=== PATIENT | female | born 1955 | race African-American/Black ===

== ENCOUNTER 2017-12-23 12:45 | Inpatient (IN) | payer OTHER ==
[2017-12-23 15:03] VITALS: BMI 28.6
--- NOTE | 2017-12-23 16:52 | HP ---
COWS - Scale Resting Pulse: 0= CT 80 or Below Sweatin=Flushed/Facial Moisture Restless Observation: 3= Extraneous Movement Pupil Size: 2= Moderately Dilated Bone or Joint Aches: 2= Severe Diffuse Aches Runny Nose/ Eye Tearin= Runny Nose/Eyes GI Upset > 30mins: 3= Vomiting/Diarrhea Tremor Observation: 2= Slight Tremor Visible Yawning Observation: 2= >3x During Session Anxiety or Irritability: 2=Irritable/Anxious Goose Flesh Skin: 0=Smooth Skin COWS Score: 20 Admission ROS S - HPI Chief Complaint: i need help to stop using heroin,xanax Allergies/Adverse Reactions: Allergies Allergy/AdvReac Type Severity Reaction Status Date / Time No Known Allergies Allergy Verified 12/23/17 16:06 History of Present Illness: this 62 years old female with heroin and xanax dependence,seeking detox, withdrawal symptom,last detox [facility] 05/23/16 to 05/26/16 not completed htn on medication insomnia,anxiety,depression longest time of sobriety for 2 years weight loss - Ebola screening Have you traveled outside of the country in the last 21 days: No (N) Have you had contact with anyone from an Ebola affected area: No Have you been sick,other than usual withdrawal symptoms: No Do you have a fever: No - Review of Systems Constitutional: Chills, Diaphoresis, Loss of Appetite, Night Sweats, Changes in sleep, Weakness, Unintentional Wgt. Loss EENT: reports: Tearing, Nose Congestion Respiratory: reports: No Symptoms reported Cardiac: reports: No Symptoms Reported GI: reports: Diarrhea, Nausea, Vomiting, Abdominal cramping : reports: No Symptoms Reported Musculoskeletal: reports: Back Pain, Joint Pain, Muscle Pain, Joint Stiffness Integumentary: reports: Dryness Neuro: reports: Headache, Tremors Endocrine: reports: No Symptoms Reported Hematology: reports: No Symptoms Reported Psychiatric: reports: Judgement Intact, Mood/Affect Appropiate, Orientated x3 ( insomnia), Anxious, Depressed Patient History - Patient Medical History Hx Anemia: No Hx Asthma: No Hx Chronic Obstructive Pulmonary Disease (COPD): No Hx Cancer: Yes (ANUS 2001 RADIATION and chemotherapy) Hx Cardiac Disorders: No Hx Congestive Heart Failure: No Hx Hypertension: Yes (on medication) Hx Hypercholesterolemia: No Hx Pacemaker: No HX Cerebrovascular Accident: No Hx Seizures: No Hx Dementia: No Hx Diabetes: No Hx Gastrointestinal Disorders: No Hx Liver Disease: No Hx Genitourinary Disorders: No Hx Sexually Transmitted Disorders: No Hx Renal Disease (ESRD): No Hx Thyroid Disease: No Hx Human Immunodeficiency Virus (HIV): No Hx Hepatitis C: No Hx Depression: Yes (anxiety,insomnia) Hx Suicide Attempt: No Hx Bipolar Disorder: No Hx Schizophrenia: No Other Medical History: no suicidal,no homicidal, - Patient Surgical History Past Surgical History: No Hx Neurologic Surgery: No Hx Cataract Extraction: No Hx Cardiac Surgery: No Hx Lung Surgery: No Hx Breast Surgery: No Hx Breast Biopsy: No Hx Abdominal Surgery: No Hx Appendectomy: No Hx Cholecystectomy: No Hx Genitourinary Surgery: Yes (partial hysterectomy for fibroid ) Hx Section: No Hx Orthopedic Surgery: No Hx Hysterectomy: No Anesthesia Reaction: No - PPD History Previous Implant?: Yes Documented Results: Negative w/o proof Date: 05/25/16 Results: 0mm PPD to be Administered?: Yes - Reproductive History Patient is a Female of Child Bearing Age (11 -55 yrs old): No Patient : No - Smoking Cessation Smoking history: Current every day smoker Have you smoked in the past 12 months: Yes Aproximately how many cigarettes per day: 10 Hx Chewing Tobacco Use: No Initiated information on smoking cessation: Yes 'Breaking Loose' booklet given: 12/23/17 - Substance & Tx. History Hx Alcohol Use: No Hx Substance Use: Yes Substance Use Type: Heroin, Tranquilizers Hx Substance Use Treatment: Yes ([facility] 05/23/16 to 05/26/16 not completed) - Substances Abused Heroin Route: Inhalation Frequency: Daily Amount used: 5-8 bags Age of first use: 57 Date of Last Use: 12/22/17 Alprazolam (Xanax) Route: Oral Frequency: Daily Amount used: 4 mgs Age of first use: 51 Date of Last Use: 12/23/17 Family Disease History - Family Disease History Family Disease History: Other: Father (DO NOT KNOW HIM), Mother (CHEMICAL INBALANCE) Admission Physical Exam BHS - Vital Signs Vital Signs: Vital Signs - 24 hr 12/23/17 15:01 Temperature 98.2 F Pulse Rate 59 L Respiratory 18 Rate Blood Pressure 149/93 - Physical General Appearance: Yes: Moderate Distress, Tremorous, Irritable, Sweating HEENTM: Yes: Normal ENT Inspection, CASSIE, Pharynx Normal Respiratory: Yes: Within Normal Limits, Lungs Clear, Normal Breath Sounds Neck: Yes: Within Normal Limits, Supple, Trachea in good position Breast: Yes: Breast Exam Deferred Cardiology: Yes: Within Normal Limits, Regular Rhythm, Regular Rate, S1, S2 Abdominal: Yes: Within Normal Limits, Normal Bowel Sounds, Non Tender, Soft, Decreased BS Genitourinary: Yes: Within Normal Limits Back: Yes: Muscle Spasm Musculoskeletal: Yes: Back pain, Muscle Pain Extremities: Yes: Within Normal Limits, Normal Range of Motion, Tremors Neurological: Yes: senior graphic designer II-XII NML intact, Fully Oriented, Alert, Motor Strength 5/5 Integumentary: Yes: Dry Lymphatic: Yes: Within Normal Limits - Diagnostic (1) Opioid dependence with withdrawal Current Visit: Yes Status: Acute (2) Uncomplicated sedative, hypnotic or anxiolytic withdrawal Current Visit: Yes Status: Acute (3) Hypertension Current Visit: No Status: Chronic Qualifiers: Hypertension type: essential hypertension Qualified Code(s): I10 - Essential (primary) hypertension (4) Nicotine dependence Current Visit: No Status: Chronic Qualifiers: Nicotine product type: cigarettes Substance use status: uncomplicated Qualified Code(s): F17.210 - Nicotine dependence, cigarettes, uncomplicated (5) Anxiety and depression Current Visit: No Status: Suspected (6) Insomnia Current Visit: Yes Status: Acute Cleared for Admission [facility] - Detox or Rehab [facility] Level of Care: Medically Managed Detox Regimen/Protocol: Methadone/Valium [facility] Breath Alcohol Content Breath Alcohol Content: 0 Urine Pregancy Test - Result Urine Test Results: Negative- NO Line Present Urine Drug Screen - Results Drug Screen Negative: No Urine Drug Screen Results: OPI-Opiates, BZO-Benzodiazepines, OXY-Oxycodone
[2017-12-23] MEDS ORDERED: MAG HYDROX/AL HYDROX/SIMETH 30 ML UNIT-DOSE CUP PO PRN (17:52)
[2017-12-23] MEDS ORDERED: diazePAM 5 MG TABLET PO ONE (17:52)
[2017-12-23] MEDS ORDERED: guaiFENesin/D-METHORPHAN HB 10 ML UNIT-DOSE CUPS PO PRN (17:52)
[2017-12-23] MEDS ORDERED: METHADONE HCL 10 MG TABLET (FOR DETOX USE ONLY) PO ONE ×2 (17:52→23:00)
[2017-12-23] MEDS ORDERED: LOPERAMIDE HCL 2 MG CAPSULE PO PRN (17:52)
[2017-12-23] MEDS ORDERED: hydrOXYzine PAMOATE 25 MG CAPSULE (FP) PO PRN (17:52)
[2017-12-23] MEDS ORDERED: P-EPHED 60MG/TRIPROLIDI 2.5MG TABLET PO PRN (17:52)
[2017-12-23] MEDS ORDERED: IBUPROFEN 400 MG TABLET (FP) PO PRN (17:52)
[2017-12-23] MEDS ORDERED: ACETAMINOPHEN 325 MG TABLET (FP) PO PRN (17:52)
[2017-12-23] MEDS ORDERED: MAGNESIUM CITRATE 300 ML BOTTLE PO PRN (17:52)
[2017-12-23] MEDS ORDERED: MENTHOL/PHENOL 1 EACH UD MM PRN (17:52)
[2017-12-23] MEDS ORDERED: MAGNESIUM HYDROX 2400MG/30ML ORAL SUSPENSION 30 ML CUP PO PRN (17:52)
[2017-12-23] MEDS: NICOTINE 21 MG/24 HOURS TOPICAL PATCH TD SCH (18:51)
[2017-12-23] MEDS ORDERED: COLLOIDAL OATMEAL 1 BAR EACH TP PRN (19:11)
[2017-12-23] MEDS: THIAMINE HCL 100 MG TABLET (FP) PO SCH (22:18)
[2017-12-23] MEDS: diazePAM 5 MG TABLET PO SCH (22:18)
[2017-12-23] MEDS: ENALAPRIL MALEATE 10 MG TABLET (FP) PO SCH (22:18)
[2017-12-24] MEDS: diazePAM 5 MG TABLET PO SCH ×3 (05:24→22:16)
[2017-12-24] MEDS ORDERED: METHADONE HCL 10 MG TABLET (FOR DETOX USE ONLY) PO SCH (10:00)
[2017-12-24] MEDS: PRENATAL VITAMINS W/ FOLIC ACID TABLET (FP) PO SCH (10:12)
[2017-12-24] MEDS: ENALAPRIL MALEATE 10 MG TABLET (FP) PO SCH ×2 (10:12→22:16)
[2017-12-24] MEDS: NICOTINE 21 MG/24 HOURS TOPICAL PATCH TD SCH (10:13)
[2017-12-24] MEDS: diazePAM 5 MG TABLET PO PRN (10:16)
[2017-12-24 10:29] LABS: HEMATOCRIT 43.2 % (32.4-45.2); MCH 28.4 pg (25.7-33.7); MCHC 32.3 g/dl (32.0-36.0); MEAN CELL VOLUME 87.8 fl (80-96); MEAN PLT VOLUME 8.8 fl (7.5-11.1); PLATELET COUNT 207 K/MM3 (134-434); RBC 4.91 M/mm3 (3.60-5.2); RDW 15.5 % (11.6-15.6)
[2017-12-24 10:31] LABS: URINE APPEARANCE CLEAR; URINE BILIRUBIN NEGATIVE (NEGATIVE); URINE BLOOD NEGATIVE (NEGATIVE); URINE COLOR AMBER; URINE GLUCOSE (UA) NEGATIVE (NEGATIVE); URINE KETONE TRACE (NEGATIVE); URINE LEUK ESTERASE NEGATIVE (NEGATIVE); URINE NITRITE NEGATIVE (NEGATIVE); URINE PROTEIN NEGATIVE (NEGATIVE)
[2017-12-24 10:40] LABS: ALBUMIN 3.5 g/dl (3.4-5.0); ANION GAP 9 (8-16); BLOOD UREA NITROGEN 6 mg/dL (7-18); CALCIUM 9.6 mg/dL (8.5-10.1); CHLORIDE 102 mmol/L (98-107); CO2 30 mmol/L (21-32); POTASSIUM 3.9 mmol/L (3.5-5.1); SODIUM 141 mmol/L (136-145)
[2017-12-24 10:45] LABS: ALK PHOS 63 U/L (45-117); BILIRUBIN,TOTAL 0.5 mg/dL (0.2-1.0); CREATININE 0.8 mg/dL (0.55-1.02); GLUCOSE,RANDOM 85 mg/dL (74-106); SGOT/AST 16 U/L (15-37); SGPT/ALT 14 U/L (12-78); TOT PROT 7.1 g/dl (6.4-8.2)
--- NOTE | 2017-12-24 11:25 | CONSULT ---
[facility] Psychiatric Consult - Data Date of interview: 12/24/17 Admission source: Self-referred Identifying data: Ms Jimenez is a 62 years old Black female, mother of a 41 years old son, unemployed on SSI, domiciled seeking detox treatment for heroin and xanax Substance Abuse History: Reports history of heroin and xanax use. Refer to addiction counselor's note for further information. Medical History: Significant for hypertension and history of treatment for anal cancer (radiation &chemo treatment in 2002) and surgery for partial hysterectomy for fibroid. Smokes 10 cigarettes daily Psychiatric History: Reports being diagnosed with depression/anxiety in the past. Claims she saw a lot of psychiatrists in the past and one of them mentioned that she may have Bipolar Disorder s well. Reports taking Abilify in the past and still taking Xanax. Reports not currently receiving psychiatric oupatient treatment. Denies history of psychiatic hospitalization or suicidal attempt. Reports she attended [facility] in [place] in the past. At present, reports feeling anxious and sleeping poorly Physical/Sexual Abuse/Trauma History: Denies history of emotional, physical or sexual abuse as well as DV relationship Additional Comment: No criminal history Mental Status Exam - Mental Status Exam Alert and Oriented to: Time, Place, Person Cognitive Function: Fair Patient Appearance: Well Groomed Mood: Anxious Affect: Appropriate Patient Behavior: Cooperative Speech Pattern: Clear Voice Loudness: Normal Thought Process: Intact, Goal Oriented Hallucinations: Denies Suicidal Ideation: Denies Homicidal Ideation: Denies Insight/Judgement: Poor Sleep: Poorly Appetite: Fair Muscle strength/Tone: Normal Gait/Station: Normal Psychiatric Findings - Problem List ([place] 1, 2,3) (1) Substance-induced anxiety disorder Current Visit: Yes Status: Acute (2) Substance-induced sleep disorder Current Visit: Yes Status: Acute (3) Opioid dependence with withdrawal Current Visit: Yes Status: Acute (4) Uncomplicated sedative, hypnotic or anxiolytic withdrawal Current Visit: Yes Status: Acute (5) Nicotine dependence Current Visit: No Status: Chronic Qualifiers: Nicotine product type: cigarettes Substance use status: uncomplicated Qualified Code(s): F17.210 - Nicotine dependence, cigarettes, uncomplicated (6) Hypertension Current Visit: No Status: Chronic Qualifiers: Hypertension type: essential hypertension Qualified Code(s): I10 - Essential (primary) hypertension - Initial Treatment Plan Initial Treatment Plan: 1) Start Ambien 10 mg po HS prn for insomnia and Vistaril 50 mg po Q4hrs prn for anxiety. 2) Continue inpatient detoxification
--- NOTE | 2017-12-24 12:01 | PN ---
S COWS - Scale Resting Pulse: 0= DE 80 or Below Sweatin= Chills/Flushing Restless Observation: 3= Extraneous Movement Pupil Size: 1= Pupils >than Normal Bone or Joint Aches: 2= Severe Diffuse Aches Runny Nose/ Eye Tearin= Runny Nose/Eyes GI Upset > 30mins: 2= Nausea/Diarrhea Tremor Observation of Outstretched Hands: 2= Slight Tremor Visible Yawning Observation: 2= >3x During Session Anxiety or Irritability: 2=Irritable/Anxious Goose Flesh Skin: 0=Smooth Skin COWS Score: 17 BHS Progress Note (SOAP) Subjective: joint aches sweat gi distress tremor restlessness running nose Objective: 12/24/17 12:00 Vital Signs Temperature 98.2 F 12/24/17 10:22 Pulse Rate 65 12/24/17 10:22 Respiratory Rate 18 12/24/17 10:22 Blood Pressure 145/85 12/24/17 10:22 O2 Sat by Pulse Oximetry (%) Laboratory Last Values WBC 3.0 K/mm3 (4.0-10.0) L 12/24/17 08:00 RBC 4.91 M/mm3 (3.60-5.2) 12/24/17 08:00 Hgb 14.0 GM/dL (10.7-15.3) 12/24/17 08:00 Hct 43.2 % (32.4-45.2) 12/24/17 08:00 MCV 87.8 fl (80-96) 12/24/17 08:00 MCH 28.4 pg (25.7-33.7) 12/24/17 08:00 MCHC 32.3 g/dl (32.0-36.0) 12/24/17 08:00 RDW 15.5 % (11.6-15.6) 12/24/17 08:00 Plt Count 207 K/MM3 (134-434) D 12/24/17 08:00 MPV 8.8 fl (7.5-11.1) 12/24/17 08:00 Sodium 141 mmol/L (136-145) 12/24/17 08:00 Potassium 3.9 mmol/L (3.5-5.1) 12/24/17 08:00 Chloride 102 mmol/L (98-107) 12/24/17 08:00 Carbon Dioxide 30 mmol/L (21-32) 12/24/17 08:00 Anion Gap 9 (8-16) 12/24/17 08:00 BUN 6 mg/dL (7-18) L 12/24/17 08:00 Creatinine 0.8 mg/dL (0.55-1.02) 12/24/17 08:00 Creat Clearance w eGFR > 60 (>60) 12/24/17 08:00 Random Glucose 85 mg/dL (74-106) 12/24/17 08:00 Calcium 9.6 mg/dL (8.5-10.1) 12/24/17 08:00 Total Bilirubin 0.5 mg/dL (0.2-1.0) 12/24/17 08:00 AST 16 U/L (15-37) 12/24/17 08:00 ALT 14 U/L (12-78) 12/24/17 08:00 Alkaline Phosphatase 63 U/L (45-117) 12/24/17 08:00 Total Protein 7.1 g/dl (6.4-8.2) 12/24/17 08:00 Albumin 3.5 g/dl (3.4-5.0) 12/24/17 08:00 Urine Color [place] 12/24/17 09:30 Urine Appearance Clear 12/24/17 09:30 Urine pH 6.0 (5.0-8.0) D 12/24/17 09:30 Ur Specific [place] 1.024 (1.001-1.035) 12/24/17 09:30 Urine Protein Negative (NEGATIVE) 12/24/17 09:30 Urine Glucose (UA) Negative (NEGATIVE) 12/24/17 09:30 Urine Ketones Trace (NEGATIVE) H 12/24/17 09:30 Urine Blood Negative (NEGATIVE) 12/24/17 09:30 Urine Nitrite Negative (NEGATIVE) 12/24/17 09:30 Urine Bilirubin Negative (NEGATIVE) 12/24/17 09:30 Urine Urobilinogen 2.0 mg/dL (0.2-1.0) H 12/24/17 09:30 Ur Leukocyte Esterase Negative (NEGATIVE) 12/24/17 09:30 lab noted Assessment: 12/24/17 12:01 withdrawal sx Plan: continue detox
--- NOTE | 2017-12-24 14:28 | EKG ---
Test Reason : Blood Pressure : / mmHG Vent. Rate : 052 BPM Atrial Rate : 052 BPM P-R Int : 190 ms QRS Dur : 090 ms QT Int : 470 ms P-R-T Axes : 015 -12 001 degrees QTc Int : 437 ms SINUS BRADYCARDIA MINIMAL VOLTAGE CRITERIA FOR LVH, MAY BE NORMAL VARIANT POSSIBLE ANTEROSEPTAL INFARCT , AGE UNDETERMINED ABNORMAL ECG NO PREVIOUS ECGS AVAILABLE Confirmed by MD ROMEL, DANDY ([id number]) on 12/24/2017 2:28:25 PM Referred By: Confirmed By:DANDY URENA MD
[2017-12-24] MEDS: THIAMINE HCL 100 MG TABLET (FP) PO SCH (22:16)
[2017-12-24] MEDS: ZOLPIDEM TARTRATE 5 MG TABLET PO PRN (22:17)
--- NOTE | 2017-12-25 09:51 | PN ---
[facility] CIWA - CIWA Score Nausea/Vomitin Muscle Tremors: 3 Anxiety: 3 Agitation: 3 Paroxysmal Sweats: 1-Minimal Palms Moist Orientation: 0-Oriented Tacttile Disturbances: 1-Very Mild Itch/Numbness Auditory Disturbances: 1-Very Mild Visual Disturbances: 0-None Headache: 2-Mild CIWA-Ar Total Score: 17 BHS COWS - Scale Resting Pulse: 0= DE 80 or Below Sweatin= Chills/Flushing Restless Observation: 3= Extraneous Movement Pupil Size: 1= Pupils >than Normal Bone or Joint Aches: 2= Severe Diffuse Aches Runny Nose/ Eye Tearin= Runny Nose/Eyes GI Upset > 30mins: 2= Nausea/Diarrhea Tremor Observation of Outstretched Hands: 2= Slight Tremor Visible Yawning Observation: 1= 1-2x During Session Anxiety or Irritability: 2=Irritable/Anxious Goose Flesh Skin: 0=Smooth Skin COWS Score: 16 S Progress Note (SOAP) Subjective: ALERT,IRRITABLE,ANXIOUS,INTERRUPTED SLEEP,TREMOR,PAIN IN THE BODY AND BACK Objective: 12/25/17 09:48 Vital Signs Temperature 98.6 F 12/25/17 06:00 Pulse Rate 69 12/25/17 06:00 Respiratory Rate 18 12/25/17 06:00 Blood Pressure 146/94 12/25/17 06:00 O2 Sat by Pulse Oximetry (%) EKG NSR NO CHEST PAIN,NO SOB,NO DIZZINESS Laboratory Last Values WBC 3.0 K/mm3 (4.0-10.0) L 12/24/17 08:00 RBC 4.91 M/mm3 (3.60-5.2) 12/24/17 08:00 Hgb 14.0 GM/dL (10.7-15.3) 12/24/17 08:00 Hct 43.2 % (32.4-45.2) 12/24/17 08:00 MCV 87.8 fl (80-96) 12/24/17 08:00 MCH 28.4 pg (25.7-33.7) 12/24/17 08:00 MCHC 32.3 g/dl (32.0-36.0) 12/24/17 08:00 RDW 15.5 % (11.6-15.6) 12/24/17 08:00 Plt Count 207 K/MM3 (134-434) D 12/24/17 08:00 MPV 8.8 fl (7.5-11.1) 12/24/17 08:00 Sodium 141 mmol/L (136-145) 12/24/17 08:00 Potassium 3.9 mmol/L (3.5-5.1) 12/24/17 08:00 Chloride 102 mmol/L (98-107) 12/24/17 08:00 Carbon Dioxide 30 mmol/L (21-32) 12/24/17 08:00 Anion Gap 9 (8-16) 12/24/17 08:00 BUN 6 mg/dL (7-18) L 12/24/17 08:00 Creatinine 0.8 mg/dL (0.55-1.02) 12/24/17 08:00 Creat Clearance w eGFR > 60 (>60) 12/24/17 08:00 Random Glucose 85 mg/dL (74-106) 12/24/17 08:00 Calcium 9.6 mg/dL (8.5-10.1) 12/24/17 08:00 Total Bilirubin 0.5 mg/dL (0.2-1.0) 12/24/17 08:00 AST 16 U/L (15-37) 12/24/17 08:00 ALT 14 U/L (12-78) 12/24/17 08:00 Alkaline Phosphatase 63 U/L (45-117) 12/24/17 08:00 Total Protein 7.1 g/dl (6.4-8.2) 12/24/17 08:00 Albumin 3.5 g/dl (3.4-5.0) 12/24/17 08:00 Urine Color [place] 12/24/17 09:30 Urine Appearance Clear 12/24/17 09:30 Urine pH 6.0 (5.0-8.0) D 12/24/17 09:30 Ur Specific [place] 1.024 (1.001-1.035) 12/24/17 09:30 Urine Protein Negative (NEGATIVE) 12/24/17 09:30 Urine Glucose (UA) Negative (NEGATIVE) 12/24/17 09:30 Urine Ketones Trace (NEGATIVE) H 12/24/17 09:30 Urine Blood Negative (NEGATIVE) 12/24/17 09:30 Urine Nitrite Negative (NEGATIVE) 12/24/17 09:30 Urine Bilirubin Negative (NEGATIVE) 12/24/17 09:30 Urine Urobilinogen 2.0 mg/dL (0.2-1.0) H 12/24/17 09:30 Ur Leukocyte Esterase Negative (NEGATIVE) 12/24/17 09:30 RPR Titer Nonreactive (NONREACTIVE) 12/24/17 08:00 Assessment: 12/25/17 09:50 WITHDRAWAL SYMPTOM Plan: CONTINUE DETOX
[2017-12-25] MEDS: PRENATAL VITAMINS W/ FOLIC ACID TABLET (FP) PO SCH (10:40)
[2017-12-25] MEDS: METHADONE HCL 5 MG TABLET (FOR DETOX USE ONLY) PO SCH (10:40)
[2017-12-25] MEDS: ENALAPRIL MALEATE 10 MG TABLET (FP) PO SCH ×2 (10:40→22:23)
[2017-12-25] MEDS: NICOTINE 21 MG/24 HOURS TOPICAL PATCH TD SCH ×2 (10:41→10:44)
[2017-12-25] MEDS: diazePAM 5 MG TABLET PO SCH ×2 (10:41→22:23)
--- NOTE | 2017-12-25 10:58 | EKG ---
Test Reason : Blood Pressure : / mmHG Vent. Rate : 064 BPM Atrial Rate : 064 BPM P-R Int : 200 ms QRS Dur : 086 ms QT Int : 446 ms P-R-T Axes : -23 -15 001 degrees QTc Int : 460 ms SINUS RHYTHM WITH PREMATURE SUPRAVENTRICULAR COMPLEXES ANTEROSEPTAL INFARCT (CITED ON OR BEFORE 23-DEC-2017) ABNORMAL ECG WHEN COMPARED WITH ECG OF 23-DEC-2017 18:54, PREMATURE SUPRAVENTRICULAR COMPLEXES ARE NOW PRESENT Confirmed by SOLO TEJADA MD ([id number]) on 12/25/2017 10:58:10 AM Referred By: Confirmed By:SOLO TEJADA MD
[2017-12-25] MEDS: diazePAM 5 MG TABLET PO PRN (17:37)
[2017-12-25] MEDS: THIAMINE HCL 100 MG TABLET (FP) PO SCH (22:23)
[2017-12-25] MEDS: ZOLPIDEM TARTRATE 5 MG TABLET PO PRN (22:23)
[2017-12-26] MEDS: diazePAM 5 MG TABLET PO PRN ×2 (05:18→15:29)
[2017-12-26] MEDS ORDERED: cloNIDine HCL 0.1 MG TABLET PO ONE (06:59)
--- NOTE | 2017-12-26 09:03 | PN ---
BHS Progress Note (SOAP) Subjective: general body ache sweat gi upset tremor restlessness agitative Objective: 12/26/17 09:03 Vital Signs Temperature 98.1 F 12/26/17 06:00 Pulse Rate 50 L 12/26/17 06:00 Respiratory Rate 18 12/26/17 06:00 Blood Pressure 150/100 12/26/17 06:00 O2 Sat by Pulse Oximetry (%) Laboratory Last Values WBC 3.0 K/mm3 (4.0-10.0) L 12/24/17 08:00 RBC 4.91 M/mm3 (3.60-5.2) 12/24/17 08:00 Hgb 14.0 GM/dL (10.7-15.3) 12/24/17 08:00 Hct 43.2 % (32.4-45.2) 12/24/17 08:00 MCV 87.8 fl (80-96) 12/24/17 08:00 MCH 28.4 pg (25.7-33.7) 12/24/17 08:00 MCHC 32.3 g/dl (32.0-36.0) 12/24/17 08:00 RDW 15.5 % (11.6-15.6) 12/24/17 08:00 Plt Count 207 K/MM3 (134-434) D 12/24/17 08:00 MPV 8.8 fl (7.5-11.1) 12/24/17 08:00 Sodium 141 mmol/L (136-145) 12/24/17 08:00 Potassium 3.9 mmol/L (3.5-5.1) 12/24/17 08:00 Chloride 102 mmol/L (98-107) 12/24/17 08:00 Carbon Dioxide 30 mmol/L (21-32) 12/24/17 08:00 Anion Gap 9 (8-16) 12/24/17 08:00 BUN 6 mg/dL (7-18) L 12/24/17 08:00 Creatinine 0.8 mg/dL (0.55-1.02) 12/24/17 08:00 Creat Clearance w eGFR > 60 (>60) 12/24/17 08:00 Random Glucose 85 mg/dL (74-106) 12/24/17 08:00 Calcium 9.6 mg/dL (8.5-10.1) 12/24/17 08:00 Total Bilirubin 0.5 mg/dL (0.2-1.0) 12/24/17 08:00 AST 16 U/L (15-37) 12/24/17 08:00 ALT 14 U/L (12-78) 12/24/17 08:00 Alkaline Phosphatase 63 U/L (45-117) 12/24/17 08:00 Total Protein 7.1 g/dl (6.4-8.2) 12/24/17 08:00 Albumin 3.5 g/dl (3.4-5.0) 12/24/17 08:00 Urine Color [place] 12/24/17 09:30 Urine Appearance Clear 12/24/17 09:30 Urine pH 6.0 (5.0-8.0) D 12/24/17 09:30 Ur Specific [place] 1.024 (1.001-1.035) 12/24/17 09:30 Urine Protein Negative (NEGATIVE) 12/24/17 09:30 Urine Glucose (UA) Negative (NEGATIVE) 12/24/17 09:30 Urine Ketones Trace (NEGATIVE) H 12/24/17 09:30 Urine Blood Negative (NEGATIVE) 12/24/17 09:30 Urine Nitrite Negative (NEGATIVE) 12/24/17 09:30 Urine Bilirubin Negative (NEGATIVE) 12/24/17 09:30 Urine Urobilinogen 2.0 mg/dL (0.2-1.0) H 12/24/17 09:30 Ur Leukocyte Esterase Negative (NEGATIVE) 12/24/17 09:30 RPR Titer Nonreactive (NONREACTIVE) 12/24/17 08:00 lab noted Assessment: 12/26/17 09:03 withdrawal sx Plan: continue detox
[2017-12-26] MEDS: NICOTINE 21 MG/24 HOURS TOPICAL PATCH TD SCH (10:49)
[2017-12-26] MEDS: METHADONE HCL 5 MG TABLET (FOR DETOX USE ONLY) PO SCH (10:49)
[2017-12-26] MEDS: diazePAM 5 MG TABLET PO SCH ×2 (10:49→22:51)
[2017-12-26] MEDS: PRENATAL VITAMINS W/ FOLIC ACID TABLET (FP) PO SCH (10:49)
[2017-12-26] MEDS: ENALAPRIL MALEATE 10 MG TABLET (FP) PO SCH ×2 (10:49→22:51)
[2017-12-26] MEDS: THIAMINE HCL 100 MG TABLET (FP) PO SCH (22:51)
[2017-12-26] MEDS: hydrOXYzine PAMOATE 50 MG CAPSULE (FP) PO PRN (22:54)
[2017-12-26] MEDS: ZOLPIDEM TARTRATE 5 MG TABLET PO PRN (23:39)
[2017-12-27] MEDS: hydrOXYzine PAMOATE 50 MG CAPSULE (FP) PO PRN ×2 (06:33→18:38)
[2017-12-27] MEDS ORDERED: diazePAM 5 MG TABLET PO SCH (10:00)
[2017-12-27] MEDS ORDERED: METHADONE HCL 10 MG TABLET (FOR DETOX USE ONLY) PO SCH (10:00)
--- NOTE | 2017-12-27 10:24 | PN ---
S Progress Note (SOAP) Subjective: alert oriented x 3 less withdrawal sx tolerate food and fluid well social with roommate and some peers Objective: 12/27/17 10:21 Vital Signs Temperature 97.2 F L 12/27/17 06:37 Pulse Rate 47 L 12/27/17 06:37 Respiratory Rate 18 12/27/17 06:37 Blood Pressure 149/87 12/27/17 06:37 O2 Sat by Pulse Oximetry (%) Laboratory Last Values WBC 3.0 K/mm3 (4.0-10.0) L 12/24/17 08:00 RBC 4.91 M/mm3 (3.60-5.2) 12/24/17 08:00 Hgb 14.0 GM/dL (10.7-15.3) 12/24/17 08:00 Hct 43.2 % (32.4-45.2) 12/24/17 08:00 MCV 87.8 fl (80-96) 12/24/17 08:00 MCH 28.4 pg (25.7-33.7) 12/24/17 08:00 MCHC 32.3 g/dl (32.0-36.0) 12/24/17 08:00 RDW 15.5 % (11.6-15.6) 12/24/17 08:00 Plt Count 207 K/MM3 (134-434) D 12/24/17 08:00 MPV 8.8 fl (7.5-11.1) 12/24/17 08:00 Sodium 141 mmol/L (136-145) 12/24/17 08:00 Potassium 3.9 mmol/L (3.5-5.1) 12/24/17 08:00 Chloride 102 mmol/L (98-107) 12/24/17 08:00 Carbon Dioxide 30 mmol/L (21-32) 12/24/17 08:00 Anion Gap 9 (8-16) 12/24/17 08:00 BUN 6 mg/dL (7-18) L 12/24/17 08:00 Creatinine 0.8 mg/dL (0.55-1.02) 12/24/17 08:00 Creat Clearance w eGFR > 60 (>60) 12/24/17 08:00 Random Glucose 85 mg/dL (74-106) 12/24/17 08:00 Calcium 9.6 mg/dL (8.5-10.1) 12/24/17 08:00 Total Bilirubin 0.5 mg/dL (0.2-1.0) 12/24/17 08:00 AST 16 U/L (15-37) 12/24/17 08:00 ALT 14 U/L (12-78) 12/24/17 08:00 Alkaline Phosphatase 63 U/L (45-117) 12/24/17 08:00 Total Protein 7.1 g/dl (6.4-8.2) 12/24/17 08:00 Albumin 3.5 g/dl (3.4-5.0) 12/24/17 08:00 Urine Color [place] 12/24/17 09:30 Urine Appearance Clear 12/24/17 09:30 Urine pH 6.0 (5.0-8.0) D 12/24/17 09:30 Ur Specific [place] 1.024 (1.001-1.035) 12/24/17 09:30 Urine Protein Negative (NEGATIVE) 12/24/17 09:30 Urine Glucose (UA) Negative (NEGATIVE) 12/24/17 09:30 Urine Ketones Trace (NEGATIVE) H 12/24/17 09:30 Urine Blood Negative (NEGATIVE) 12/24/17 09:30 Urine Nitrite Negative (NEGATIVE) 12/24/17 09:30 Urine Bilirubin Negative (NEGATIVE) 12/24/17 09:30 Urine Urobilinogen 2.0 mg/dL (0.2-1.0) H 12/24/17 09:30 Ur Leukocyte Esterase Negative (NEGATIVE) 12/24/17 09:30 RPR Titer Nonreactive (NONREACTIVE) 12/24/17 08:00 lab noted Assessment: 12/27/17 10:21 mild withdrawal sx Plan: medically supervised detox
[2017-12-27] MEDS: PRENATAL VITAMINS W/ FOLIC ACID TABLET (FP) PO SCH (10:37)
[2017-12-27] MEDS: NICOTINE 21 MG/24 HOURS TOPICAL PATCH TD SCH (10:37)
[2017-12-27] MEDS: ENALAPRIL MALEATE 10 MG TABLET (FP) PO SCH ×2 (10:37→22:29)
[2017-12-27] MEDS: amLODIPine BESYLATE 5 MG TABLET (FP) PO SCH (11:21)
[2017-12-27] MEDS: ZOLPIDEM TARTRATE 5 MG TABLET PO PRN (22:29)
[2017-12-27] MEDS: THIAMINE HCL 100 MG TABLET (FP) PO SCH (22:29)
[2017-12-28] MEDS ORDERED: METHADONE HCL 5 MG TABLET (FOR DETOX USE ONLY) PO SCH (06:00)
[2017-12-28 06:17] VITALS: BP 144/83; PULSE 63; TEMP 97
--- NOTE | 2017-12-28 08:15 | PN ---
S Progress Note (SOAP) Subjective: ALERT,NO COMPLAINT Objective: 12/28/17 08:13 Vital Signs Temperature 97.0 F L 12/28/17 06:16 Pulse Rate 63 12/28/17 06:16 Respiratory Rate 18 12/28/17 06:16 Blood Pressure 144/83 12/28/17 06:16 O2 Sat by Pulse Oximetry (%) Assessment: 12/28/17 08:14 DETOX COMPLETED,NO WITHDRAWAL SYMPTOM Plan: DISCHARGE TODAY,FOLLOW UP WITH AFTER CARE PROGRAM ARRANGEMENT
--- NOTE | 2017-12-28 08:20 | DS ---
[facility] Detox Discharge Summary Admission Date: 12/23/17 Discharge Date: 12/28/17 - History Present History: Opioid Dependence, Sedative Dependence Additional Comments: FOLLOW UP WITH AFTER CARE PROGRAM ARRANGEMENT Pertinent Past History: HYPERTENSION NICOTINE DEPENDENCE ANXIETY AND DEPRESSION INSOMNIA - Physical Exam Results Vital Signs: Vital Signs Temperature 97.0 F L 12/28/17 06:16 Pulse Rate 63 12/28/17 06:16 Respiratory Rate 18 12/28/17 06:16 Blood Pressure 144/83 12/28/17 06:16 O2 Sat by Pulse Oximetry (%) Pertinent Admission Physical Exam Findings: WITHDRAWAL SIGNS AND SYMPTOM Vital Signs Temperature 97.0 F L 12/28/17 06:16 Pulse Rate 63 12/28/17 06:16 Respiratory Rate 18 12/28/17 06:16 Blood Pressure 144/83 12/28/17 06:16 O2 Sat by Pulse Oximetry (%) - Treatment Hospital Course: Detox Protocol Followed, Detoxed Safely, Responded well, Discharged Condition Good Patient has Accepted a Rehab Referral to: DECLINED - Medication Discharge Medications: Ambulatory Orders Amlodipine Besylate [Norvasc -] 5 mg PO DAILY #30 tablet 12/27/17 Enalapril Maleate [Vasotec -] 10 mg PO BID #60 tablet 12/27/17 Oxybutynin Chloride [Oxybutynin Chloride ER] 15 mg PO DAILY 12/27/17 - Diagnosis (1) Opioid dependence with withdrawal Current Visit: Yes Status: Acute (2) Uncomplicated sedative, hypnotic or anxiolytic withdrawal Current Visit: Yes Status: Acute (3) Hypertension Current Visit: No Status: Chronic Qualifiers: Hypertension type: essential hypertension Qualified Code(s): I10 - Essential (primary) hypertension (4) Nicotine dependence Current Visit: No Status: Chronic Qualifiers: Nicotine product type: cigarettes Substance use status: uncomplicated Qualified Code(s): F17.210 - Nicotine dependence, cigarettes, uncomplicated (5) Anxiety and depression Current Visit: No Status: Suspected (6) Insomnia Current Visit: Yes Status: Acute - AMA Did Patient Leave Against Medical Advice: No
[2017-12-28] MEDS: amLODIPine BESYLATE 5 MG TABLET (FP) PO SCH (09:20)
[2017-12-28] MEDS: PRENATAL VITAMINS W/ FOLIC ACID TABLET (FP) PO SCH (09:20)
[2017-12-28] MEDS: ENALAPRIL MALEATE 10 MG TABLET (FP) PO SCH (09:20)
[2017-12-28] MEDS: NICOTINE 21 MG/24 HOURS TOPICAL PATCH TD SCH (09:36)
== END 2017-12-28 09:38 | disposition home or self-care (01) | DRG 773 ==
LOC: YASAS 12:45 → Y6N 16:11
PROVIDERS: ADMIT Internal Medicine; ATTEND Internal Medicine
PROC: HZ2ZZZZ Detoxification Services for Substance Abuse Treatment (ICD-10-PCS; principal; 2017-12-23)
DX: F11.23 Opioid dependence with withdrawal (principal); F13.230 Sedative, hypnotic or anxiolytic dependence with withdrawal, uncomplicated; F17.210 Nicotine dependence, cigarettes, uncomplicated; F41.8 Other specified anxiety disorders; G47.00 Insomnia, unspecified; I10 Essential (primary) hypertension; Z85.048 Personal history of other malignant neoplasm of rectum, rectosigmoid junction, and anus; Z92.21 Personal history of antineoplastic chemotherapy; Z92.3 Personal history of irradiation; Z90.710 Acquired absence of both cervix and uterus; Z87.898 Personal history of other specified conditions
CPT/HCPCS: 36415; 80053; 81003; 85027; 86593; 93005; 93010; J0735